=== PATIENT | female | born 1955 | race Caucasian/White ===

== ENCOUNTER 2019-01-26 13:52 | Emergency (ER) | payer MEDICAID ==
[~2019-01-26] VITALS: Ht 167.6 cm; Wt 88.0 kg
[2019-01-26 14:41] VITALS: BP 152/83
[2019-01-26] MEDS ORDERED: HYDR25TA PO (14:45)
[2019-01-26] MEDS ORDERED: BENA40TA9 PO (14:45)
[2019-01-26] MEDS ORDERED: AMLO5TAB4 PO (14:45)
== END 2019-01-26 16:26 | disposition left against medical advice (07) ==
LOC: ER 13:52
DX: Z53.21 Procedure and treatment not carried out due to patient leaving prior to being seen by health care provider (principal)